=== PATIENT | male | born 1975 | race African-American/Black ===

== ENCOUNTER 2017-10-12 15:52 | Emergency (ER) | payer MEDICAID ==
[~2017-10-12] VITALS: Ht 190.5 cm; Wt 150.0 kg
[~2017-10-12 15:52] MED LIST: METF500T4 PO; OMEP20CA10 PO
[2017-10-12] MEDS ORDERED: IBUPROFEN 600MG TABLET PO ONE (18:15)
[2017-10-12 19:54] VITALS: BP 141/78
== END 2017-10-12 19:59 | disposition home or self-care (01) ==
LOC: ER 16:27
DX: S93.601A Unspecified sprain of right foot, initial encounter (principal); I10 Essential (primary) hypertension; E11.9 Type 2 diabetes mellitus without complications; Z88.0 Allergy status to penicillin; W22.8XXA Striking against or struck by other objects, initial encounter; Y93.89 Activity, other specified; Y92.89 Other specified places as the place of occurrence of the external cause; Y99.8 Other external cause status; Z88.8 Allergy status to other drugs, medicaments and biological substances
CPT/HCPCS: 73630; 99284; Z7610

== ENCOUNTER 2024-03-11 00:12 | Emergency (ER) | payer MEDICAID, OTHER ==
[~2024-03-11] VITALS: Ht 175.3 cm; Wt 100.0 kg
[~2024-03-11 00:12] MED LIST changes: +METF-414 PO; -METF500T4 PO; -OMEP20CA10 PO; +OMEP20CA14 PO
[2024-03-11 00:21] VITALS: TEMP 98.8; O2SAT 94
[2024-03-11] MEDS: ONDANSETRON HCL 4MG/2ML INJ IV STA (00:38)
[2024-03-11] MEDS: SODIUM CHLORIDE 0.9% 1,000 ML IV ONE (00:38)
[2024-03-11 00:46] LABS: CHLORIDE 102 mEq/L (98-107); POTASSIUM 3.9 mEq/L (3.5-5.1); SODIUM 136 mEq/L (136-145)
[2024-03-11 00:47] LABS: CALCIUM 9.7 mg/dL (8.7-10.4); CARBON DIOXIDE 26 mEq/L (21-32)
[2024-03-11 00:52] LABS: CREATININE 0.9 mg/dL (0.6-1.3); GLUCOSE 148 mg/dL (70-105); UREA NITROGEN BLOOD 13 mg/dL (9-23)
[2024-03-11 00:53] LABS: ETHANOL BLOOD < 10 mg/dL (<10); LACTIC ACID 2.2 mmol/L (0.4-2.0)
[2024-03-11 00:54] LABS: ALANINE AMINOTRANSFERASE 59 IU/L (10-49); ALBUMIN 4.4 g/dL (3.2-4.8); ASPARTATE AMINOTRANSFERASE 38 IU/L (<34); BASOPHILS % 0.2 % (0.0-2.0); BILIRUBIN TOTAL 1.4 mg/dL (0.1-1.0); EOSINOPHILS % 2.8 % (0.0-5.0); HEMATOCRIT. 43.1 % (42.0-52.0); HEMOGLOBIN. 14.8 g/dL (14.0-18.0); LYMPHOCYTES % 11.2 % (20.0-50.0); MEAN CORPUSCULAR HEMOGLOBIN 29.6 pg (28.0-32.0); MEAN CORPUSCULAR HGB CONC 34.5 g/dL (31.0-37.0); MEAN CORPUSCULAR VOLUME 85.9 fL (80.0-94.0); MONOCYTES % 6.1 % (2.0-8.0); NEUTROPHILS % 79.7 % (40.0-76.0); PLATELET 252 x1000/uL (130-400); PROTEIN TOTAL 7.7 g/dL (6.0-8.3); RED BLOOD CELL COUNT 5.01 mill/uL (4.7-6.1); RED CELL DISTRIBUTION WIDTH 14.2 % (11.6-14.6); WHITE BLOOD COUNT 7.3 x1000/uL (4.5-11.0)
[2024-03-11 01:32] LABS: CLARITY URINE CLEAR (CLEAR); COLOR URINE DARK YELLOW (YELLOW); GLUCOSE URINE NEGATIVE (NEGATIVE); KETONES URINE TRACE (NEGATIVE); LEUKOCYTE ESTERASE URINE TRACE (NEGATIVE); NITRITE URINE NEGATIVE (NEGATIVE); OCCULT BLOOD URINE NEGATIVE (NEGATIVE); PROTEIN URINE 2+ (NEGATIVE)
[2024-03-11 01:39] LABS: TROPONIN I HIGH SENSITIVITY < 4 ng/L (3.0-53)
[2024-03-11 01:43] LABS: *AMPHETAMINES SCREEN URINE NEGATIVE (NEGATIVE); *BARBITURATES SCREEN URINE NEGATIVE (NEGATIVE); *BENZODIAZEPINES SCREEN URINE NEGATIVE (NEGATIVE); *COCAINE SCREEN URINE NEGATIVE (NEGATIVE)
[2024-03-11 01:44] LABS: CANNABINOID URINE SCREEN NEGATIVE (NEGATIVE); ECSTASY MDMA SCREEN URINE NEGATIVE (NEGATIVE); METHADONE URINE SCREEN NEGATIVE (NEGATIVE); OPIATES URINE SCREEN NEGATIVE (NEGATIVE); PHENCYCLIDINE URINE SCREEN NEGATIVE (NEGATIVE)
[2024-03-11 02:54] LABS: RBC URINE 0-2 /hpf (0-2)
[2024-03-11 02:57] LABS: SQUAMOUS EPITHELIAL CELL URINE NONE SEEN /lpf (RARE/1+)
[2024-03-11 02:58] LABS: BACTERIA URINE TRACE
[2024-03-11] MEDS ORDERED: SODIUM CHLORIDE 0.9% 1,000 ML IV NR (03:00)
[2024-03-11] MEDS: KETOROLAC 15MG/ML VIAL IV NR (05:14)
[2024-03-11] MEDS ORDERED: ACET-2708 MT (05:29)
[2024-03-11] MEDS ORDERED: ONDA4TAB50 MT (05:29)
[2024-03-11] MEDS ORDERED: MAG355OR21 MT (05:29)
[2024-03-11] MEDS ORDERED: IMOD MT (05:30)
[2024-03-11 06:24] VITALS: BP 125/75; PULSE 105; RESP 16
== END 2024-03-11 06:36 | disposition home or self-care (01) ==
LOC: ER 00:12
DX: A08.39 Other viral enteritis (principal); E87.20 Acidosis, unspecified; E86.0 Dehydration; E11.9 Type 2 diabetes mellitus without complications; I10 Essential (primary) hypertension; Z88.0 Allergy status to penicillin; Z88.8 Allergy status to other drugs, medicaments and biological substances
CPT/HCPCS: 80053; 80305; 81003; 80320; 83880; 83605; 83690; 85025; 84484; 36415; 71045; 74176; 93005; 96361; 96374; 96375; 99285; J1885; J2405; J7030; Z7610 ×2; G0480

== ENCOUNTER 2024-12-20 11:02 | Emergency (ER) | payer OTHER ==
[~2024-12-20] VITALS: Ht 190.5 cm; Wt 152.0 kg
[~2024-12-20 11:02] MED LIST changes: +ACET-2708 MT; +IMOD MT; +MAG355OR21 MT; +ONDA4TAB50 MT
[2024-12-20 11:11] VITALS: O2SAT 99
[2024-12-20 11:33] LABS: BASOPHILS % 0.2 % (0.0-2.0); EOSINOPHILS % 2.1 % (0.0-5.0); HEMATOCRIT. 44.6 % (42.0-52.0); HEMOGLOBIN. 15.1 g/dL (14.0-18.0); LYMPHOCYTES % 8.3 % (20.0-50.0); MEAN CORPUSCULAR HEMOGLOBIN 29.1 pg (28.0-32.0); MEAN CORPUSCULAR HGB CONC 33.8 g/dL (31.0-37.0); MEAN CORPUSCULAR VOLUME 86.2 fL (80.0-94.0); MEAN PLATELET VOLUME 7.7 fl (7.4-10.4); MONOCYTES % 11.7 % (2.0-8.0); NEUTROPHILS % 77.7 % (40.0-76.0); PLATELET 231 x1000/uL (130-400); RED BLOOD CELL COUNT 5.18 mill/uL (4.7-6.1); RED CELL DISTRIBUTION WIDTH 14.7 % (11.6-14.6); WHITE BLOOD COUNT 9.3 x1000/uL (4.5-11.0)
[2024-12-20 11:41] LABS: CARBON DIOXIDE 28 mEq/L (21-32); CHLORIDE 97 mEq/L (98-107); POTASSIUM 4.9 mEq/L (3.5-5.1); SODIUM 134 mEq/L (136-145)
[2024-12-20 11:42] LABS: CALCIUM 9.4 mg/dL (8.7-10.4)
[2024-12-20 11:47] LABS: GLUCOSE 182 mg/dL (70-105); UREA NITROGEN BLOOD 17 mg/dL (9-23)
[2024-12-20 11:55] LABS: TROPONIN I HIGH SENSITIVITY < 4 ng/L (3.0-53)
[2024-12-20] MEDS: SODIUM CHLORIDE 0.9% 1,000 ML IV ONE ×2 (12:39→15:17)
[2024-12-20] MEDS: ONDANSETRON HCL 4MG/2ML INJ IV STA ×2 (12:45→15:17)
[2024-12-20] MEDS: MORPHINE SULFATE 4 MG/ML INJ (FOR IV/IM USE) IV STA (12:45)
[2024-12-20] MEDS ORDERED: IOHEXOL-300 100 ML BOTTLE ONE (13:17)
[2024-12-20] MEDS: DICYCLOMINE HCL 10MG/ML 2ML VIAL IM STA (15:33)
[2024-12-20] MEDS ORDERED: DICY20TA2 MT (16:02)
[2024-12-20] MEDS ORDERED: ONDA-239 PO (16:02)
[2024-12-20 16:13] VITALS: BP 140/70; PULSE 106; RESP 18; TEMP 36.9; O2SAT 99
== END 2024-12-20 16:15 | disposition admitted as inpatient to this hospital (09) ==
LOC: ER 11:11
DX: R10.84 Generalized abdominal pain (principal); E11.9 Type 2 diabetes mellitus without complications; I10 Essential (primary) hypertension; Z79.899 Other long term (current) drug therapy; Z79.84 Long term (current) use of oral hypoglycemic drugs; Z88.0 Allergy status to penicillin; Z88.8 Allergy status to other drugs, medicaments and biological substances
CPT/HCPCS: 80048; 83690; 85025; 84484; 36415; 71045; 74177; 93005; 96372; 96374; 96375; 96376; 99285; Q9967; J0500; J2405; J2270; J7030; Z7610 ×3; 96367